=== PATIENT | female | born 1945 | race Caucasian/White ===

== ENCOUNTER → 2020-07-23 15:29 | Outpatient (CLI) | payer MEDICARE, OTHER, SELFPAY ==
[2020-07-23 16:34] LABS: COVID19 -Nasal RAPID Negative (Negative)
== END ==
PROVIDERS: PCP Internal Medicine; Visit Provider Specialist
DX: Z20.822 Contact with and (suspected) exposure to COVID-19 (principal)
CPT/HCPCS: 87635; C9803

== ENCOUNTER 2020-07-24 06:25 | Day surgery (SDC) | payer MEDICARE, OTHER, SELFPAY ==
[2020-07-24] VITALS (7 sets, daily range): BP systolic 109–145; BP diastolic 43–72; PULSE 58–69; RESP 11–20; TEMP 36.2–37.1; O2SAT 93–99; BMI 35.2
--- NOTE | 2020-07-24 | PATH_ITS ---
[facility] Accession Number: [id number] . 01 Material submitted: . anus - ANAL FISSURE AND SENTINAL PILE . 01 Clinical history: . A: RULE OUT VIRAL/NEOPLASTIC PROCESS . 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 MRV 07/29/2020 1250 Local . 02 Comment: As part of routine quality control inspector, Dr. Chatterjee also reviewed this case and agrees with the diagnosis. Dr. Morris gave preliminary results to Margi in Dr. Mills's office on 07/29/2020. . 02 Electronically signed: . Anita Morris MD, Pathologist NPI- [id number] . 01 Gross description: . The specimen is received in formalin, labeled anal fissure and sentinel pile, and consists of two nuñez-pink fragments of soft tissue measuring 1.2 x 0.8 x 0.7 cm in aggregate. The margins are inked blue. The larger fragment is bisected. The specimen is entirely submitted in cassette A1. ([id number]) /R 07/25/2020 1502 Local . 02 Pathologist provided ICD-10: C21.0 . 02 CPT . 920988 Performed at: 01 [facility] [address] [place] [address], [place], [place] [id number] MD Jean Paul Jo MD Phone: [phone] Performed at: 02 [facility] [address] [place], [place] [id number] Morris MD Phone: [phone]
[2020-07-24] MEDS: LACTATED RINGERS 1,000 ML 200 ML IV (07:21)
--- NOTE | 2020-07-24 07:27 | PM.PREOP ---
Pre-operative Note COVID-19 COVID-19 status: Negative Result date/Date tested (Pos, Neg/Pending): 07/23/20 Interval Note History & Physical reviewed/Exam performed by Physician: Yes Changes to H&P: No ASA Class (for procedural sedation): III
[2020-07-24] MEDS: FLEETS ENEMA 1 EACH PR (07:36)
--- NOTE | 2020-07-24 07:58 | SUR.PREOP ---
Pt unsure if she takes metoprolol. Dr. Mills notified pre-procedure.
--- NOTE | 2020-07-24 08:05 | SUR.OPER ---
patient lateral left side down on stretcher
[2020-07-24] MEDS: LIDOCAINE JELLY 2% 5 ML 1 APPLIC TOP (08:21)
--- NOTE | 2020-07-24 08:21 | PM.OP.ENDO ---
Operative Date/Time/Diagnoses Date of procedure: 07/24/20 Time of procedure: 08:21 Pre-op diagnosis: Atypical anal fissure/ sentinel pile. Post-op diagnosis: same Procedure & Clinicians Study performed: Anoscopy. Excision of sentinel pile on biopsy of fissure. Same procedure as scheduled: Yes Indications: Very painful fissure and an atypical location with a large sentinel pile. Patient brought in to rule out neoplastic versus viral cause. Surgeon: Hugh Mills Procedure Notes SCOAP/Timeout: Performed Procedure in detail: Patient was placed in left lateral decubitus position and underwent IV sedation direct by the surgeon. She has an exquisitely tender anus and was felt that short of sedation I would not be able to do this procedure. Topical anesthetic was applied to the anal verge. Then Betadine was applied and local anesthetic infiltrated external to the large sentinel pile. An anoscope was inserted and I examined the fissure. It was principally right near the anal verge and a rather short fissure. I took a biopsy of the wall. And I decided to remove the sentinel pile with part of the wall attached to get a good pathologic evaluation. The sentinel pile was elevated and a 4-0 chromic suture was placed around the base of this pile. The pile was excised. The bleeding have not been controlled by the chromic suture I placed additional chromic sutures across the defect created. Lidocaine was sprayed on gauze and it was placed at the anal verge. Additional gauze was applied and the patient was taken to the recovery area in good condition. Scope withdrawal time: Not applicable Sedation minutes: 20 Findings: other findings (Anal fissure with sentinel pile located in the right lateral/ anterior lateral position.) Specimen(s): other (Fissure biopsy and sentinel pile) Complications: none Post-procedure Follow up: weeks (2) Disposition: PACU
[2020-07-24] MEDS: LIDOCAINE 1% W/EPI 20 ML INJ (08:22)
[2020-07-24] MEDS: fentaNYL 250 MCG/5 ML INJ IV (08:23)
[2020-07-24] MEDS: MIDAZOLAM 5 MG/5 ML VIAL IV (08:25)
== END 2020-07-24 09:15 | disposition home or self-care (01) ==
PROVIDERS: PCP Internal Medicine; Referring Provider Specialist; Visit Provider Specialist
PROC: (CPT 45990; principal; 2020-07-24 07:45)
DX: C21.0 Malignant neoplasm of anus, unspecified (principal); K64.8 Other hemorrhoids; E78.00 Pure hypercholesterolemia, unspecified; I10 Essential (primary) hypertension
CPT/HCPCS: 46255; 46606; J2250; J3010

== ENCOUNTER 2024-01-29 12:38 | Inpatient (IN) | payer MEDICARE, OTHER, SELFPAY ==
[2024-01-22 08:43] VITALS: BMI 36.9
[2024-01-29] VITALS (11 sets, daily range): BP systolic 143–173; BP diastolic 51–88; PULSE 69–80; RESP 9–18; TEMP 35.9–37; O2SAT 92–99; BMI 36.2
[2024-01-29] MEDS: LACTATED RINGERS 1,000 ML 42 ML IV (14:00)
--- NOTE | 2024-01-29 14:56 | PM.PREOP ---
Pre-operative Note Interval Note History & Physical reviewed/Exam performed by Physician: Yes Changes to H&P: No
--- NOTE | 2024-01-29 15:29 | SUR.OPER ---
Prone on spine table, head in foam head support, padded chest and pelvic supports, gel pad at knees, lower legs supported by pillows; nipples, genitalia and toes free of pressure, arms secured on foam padded arm boards at <90 degrees abduction. Tape over blanket at thigh secured to table.
[2024-01-29] MEDS: CEFAZOLIN 2 GM/100 ML PREMIX 100 ML IV ×2 (15:40→20:02)
--- NOTE | 2024-01-29 15:42 | P.OP_ITS ---
Operative Date/Time/Diagnoses Date of procedure: 01/29/24 Time of procedure: 15:42 Pre-op diagnosis: 1. L5-S1 foraminal stenosis with radiculopathy 2. L5-S1 spondylosis Post-op diagnosis: same Procedure & Clinicians Procedure: 1. L5-S1 Postero-lateral and posterior interbody fusion 2. L5-S1 interbody cage placement. 3. L5-S1 decompressive laminectomy with bilateral facetecomies 4. L5-S1 Posterior non-segmental instrumentation 5. [place] of bone marrow from iliac crest 6. Utilization of microsurgical technique and operating microscope 7. Utilization of robotic assisted navigation Same procedure as scheduled: Yes Indications: Patient has been having chronic back pain and worsening lumbar radiculopathy. Patient was found to have severe L5-S1 degenerative disc disease with foraminal stenosis correlating with her symptoms. Patient failed multiple conservative management with worsening pain weakness and numbness in her lower extremity. Patient has been having difficulty performing activity of daily living. After discussing risks benefits of treatment options, patient elected proceed with surgery. Surgeon: Yolanda Simmons Associate Loan Officer: Johanne Pro Click Yes if Unassisted: No Anesthesia Type: General Operative Notes Closure Type: primary Specimen(s): none sent Prosthetic devices, grafts, tissues, transplants, or devices: GLobus CREO MIS screws, Rise cage Estimated Blood Loss (mL): 50 Blood products transfused: none Procedure in detail: Patient was seen in the preoperative area. Risks and benefits of the surgery was discussed with the patient. Informed consent was obtained from the patient and placed in the chart. Surgical site was marked. Patient was taken to the operative room. General anesthesia was administered. Prophylactic antibiotic was given to the patient less than 30 min before the incision was made. Patient was placed into a prone position on the Rory table. Patient's back was then prepped and draped in the sterile fashion. Time-out was performed at this time. After patient was prepped and draped, patient's PSIS was palpated and marked bilaterally. Small 1 cm incision was made over the PSIS for placement of the reference probes. Two trocar was placed into the PSIS 1 on each side. The refe rence probe was attached to the trocar of the reference apparatus. At this time the C-arm imaging was used to confirm AP and lateral of L5-S1 vertebrae and merged the C-arm imaging using the Near Infinity robotic navigation system with the CT of the lumbar spine. After successful merging was completed and confirmed, skin marker was used to leon out the skin incision using the Near Infinity robotic arm. Bilateral incision was made at this time. Pre templated trajectory was used and guided using the Near Infinity robotic navigation system for bilateral L5-S1 pedicle screw placement. This was done by using the robotic arm to guide the high-speed bur to make a cortical entry point. Next a drill was placed also using the robotic arm and guided using the navigation system drilling partially through bilateral L5, S1 pedicles. Next L5-S1 pedicle screws it was pre templated and measured was placed onto the power truck driver instructor and inserted into the pedicles bilaterally. After all 4 screws were placed C-arm imaging was taken of both AP and lateral to confirm the placement. Excellent placement of the screws were confirmed and a matched precisely with the pre planned screw placement using the navigation system. MARs retractor was inserted using Woldmeivation guidence. Globus MARS retractors was placed inside the incision and docked onto the L5 lamina. Using microsurgical technique and operating microscope, a L5 laminectomy and L5-S1 facetectomy was performed using a Kerrison rongeur. Patient was found have severe lateral recess and neural foramen stenosis which was fully decompressed after the laminectomy facetectomy. The laminectomy and facetectomy was performed in order to decompress patient's cauda equina as well as the nerve roots exiting at the L5-S1 level. More than 75% of the facets were removed during the process of decompression rendering L5-S1 level grossly unstable and required a fusion procedure at the same time. The disc space at L5-S1 was identified, and a total diskectomy was performed at L5-S1 level. The endplates were decorticated using a rasp and shaver. The total diskectomy and decortication was performed at L5-S1 level in order to to accomplish a L5-S1 fusion. The local bone from the laminectomy and facetectomy was saved for local bone grafting. After the total diskectomy and decortication was completed, Viacel bone graft material was combined with local bone that was harvested earlier. At this time, a separate skin is incision was made over the iliac crest. A Jamshidi needle was inserted into the iliac crest through a separate skin incis ion on the right. 5 cc of bone marrow aspiration was obtained through the separate skin incision using a Jamshidi needle from the iliac crest. The bone marrow aspiration was combined with local bone and the Viacel bone grafting material. The bone grafting material was placed into the L5-S1 interbody space along with a expandable cage. The cage was expanded to its maximum height using the torque limiting screwdriver. The disc preparation as well as the cage insertion were also performed under navigation guidance. After the cage was placed, AP and lateral C-arm imaging was taken to confirm placement of the cage and excellent position was confirmed. Globus MARS retractor was inserted and docked onto the L5-S1 posterolateral gutter on the right side. Using the power drill, posterior-lateral decortication was performed at L5-S1 level until bleeding cortical bone was identified. The remaining bone grafting material was placed into the L5-S1 posterior lateral gutter he order to accomplish posterolateral fusion at the L5- S1 level. At this time the tulips were attached to the L5-S1 pedicle screw shanks. After measuring the length of the rods, they were inserted into the tulips of the pedicle screws and locked in place using locking caps and torque limiting screwdriver bilaterally. Total 4 caps and 2 titanium rods was used in order to complete the posterior instrumentation construct. After all the hardware was placed, and confirmed with AP and lateral C-arm imaging, the wound was then irrigated with sterile normal saline and packed with Ray-Oskar gauze for 3 min to accomplish hemostasis. After the gauze was removed the deep fascia was closed with #1 Vicryl suture. The subcutaneous layer was closed with 2-0 Vicryl. The skin was closed with skin mary. Patient tolerated the procedure well. There were no complications. The Operation could not have been safely performed without compromising the technical result or length of the procedure, without the assistance of a skilled neurology physician assistant. The neurology physician assistant was medically necessary for proper positioning, retraction and manipulation of instruments, proper exposure, surgical preparation, and manipulation of tissue. Neuro monitoring system was used to monitor patient's neurologic status throughout entire procedure. There was no disturbance of the neural monitoring signals throughout the case. Complications: none Post-operative Condition: stable Disposition: PACU Plan for aftercare: Admit to inpatient hospital
[2024-01-29] MEDS: BUPIVACAINE 0.25% (PF) 30 ML, EPINEPHrine 0.15 MG INJ (17:19)
[2024-01-29] MEDS: BUPIVACAINE LIPOSOME 266 MG/20 ML VIAL INJ (17:20)
--- NOTE | 2024-01-29 17:26 | DI.RAD.S_ITS ---
PROCEDURE: XR LUMBAR SPINE 2-3V INDICATIONS: L5-S1 TLIF TECHNIQUE: Intraoperative images of the lumbar spine COMPARISON: None. FINDINGS: Intraoperative images demonstrate a L5-S1 TLIF in progress. Please see the operative report for further details. IMPRESSION: Intraoperative images of a L5-S1 TLIF. Dictated by: Sourav Read M.D. on 01/29/2024 at 18:02 Approved by: Sourav Read M.D. on 01/29/2024 at 18:02
[2024-01-29] MEDS: ACETAMINOPHEN IV 1,000 MG/100 ML VIAL 400 MG IV (17:57)
[2024-01-29] MEDS: hydrOXYzine 50 MG/ML INJ 25 MG IM (17:58)
[2024-01-29] MEDS: OXYCODONE IR 5 MG TABLET PO ×3 (18:01→23:20)
[2024-01-29] MEDS: fentaNYL 100 MCG/2 ML INJ IV ×4 (18:03→18:22)
[2024-01-29] MEDS: LACTATED RINGERS 1,000 ML 125 ML IV (20:01)
[2024-01-29] MEDS: DOCUSATE 100 MG CAPSULE PO (20:02)
[2024-01-29] MEDS: buPROPion XL 150 MG TAB PO (20:02)
[2024-01-29] MEDS: GABAPENTIN 300 MG CAPSULE PO (20:02)
[2024-01-29] MEDS: SENNOSIDES 8.6 MG TABLET 17.2 MG PO (20:02)
[2024-01-30] MEDS: HYDROMORPHONE 0.5 MG INJ IV (00:22)
[2024-01-30] MEDS: CEFAZOLIN 2 GM/100 ML PREMIX 100 ML IV (02:54)
[2024-01-30 04:00] VITALS: BP 139/67; PULSE 64; RESP 17; TEMP 36.6; O2SAT 98
[2024-01-30] MEDS: LACTATED RINGERS 1,000 ML 125 ML IV (05:43)
[2024-01-30] MEDS: OXYCODONE IR 10 MG TABLET PO ×3 (05:57→13:24)
--- NOTE | 2024-01-30 07:46 | P.PN_ITS ---
Subjective Subjective Date Patient Seen: 01/30/24 Time Patient Seen: 07:47 Interval history: Back pain is moderate. Denies fever or chills. No nausea or vomiting. Exam Vital Signs (past 8 hours): - 01/30/24 04:00 Temperature 97.8 F Pulse Rate 64 Respiratory Rate 17 Blood Pressure 139/67 Pulse Oximetry 98 Oxygen Flow Rate 1 Oxygen Delivery Method Room Air Oxygen Flow Rate 1 Narrative Exam Narrative: 78-year-old female resting comfortably in bed in no apparent distress. Neurovascular status is intact bilateral lower extremities. 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) S/P medial meniscus repair of right knee S/P medial meniscus repair of left knee Hx of shoulder surgery Hx of hand surgery Hx of foot surgery Hx of appendectomy Hx of tonsillectomy Family History Father Hypertension Heart disease Brother Hypertension Heart disease Mother Cancer Social History marital status: household members: spouse occupational status: previously employed Smoking Status: Former smoker alcohol intake: current substance use type: does not use Assessment & Plan Post-op Postoperative Procedures: Procedures Operation Date: 01/29/24 14:45 Actual Procedure Side Surgeon p L5-S1 TLIF-Robot Yolanda Simmons MD Postoperative day: 1 Postoperative status: doing well Postoperative plan: routine post-op care Postoperative plan narrative: Disposition, likely home today or tomorrow Quality VTE Deep Vein Thrombosis/Pulmonary Embolism Present on Admission: No
[2024-01-30] MEDS: MELOXICAM 7.5 MG TABLET PO (08:45)
[2024-01-30] MEDS: OXYBUTYNIN 5 MG TABLET PO (08:45)
[2024-01-30] MEDS: GABAPENTIN 300 MG CAPSULE PO (08:45)
[2024-01-30] MEDS: ATORVASTATIN 20 MG TABLET 80 MG PO (08:45)
[2024-01-30] MEDS: buPROPion XL 150 MG TAB PO (08:45)
[2024-01-30] MEDS: DOCUSATE 100 MG CAPSULE PO (08:45)
[2024-01-30] MEDS: AMLODIPINE 5 MG TABLET PO (08:46)
[2024-01-30 09:19] VITALS: BP 154/70; PULSE 70; RESP 16; TEMP 36.3; O2SAT 99
[2024-01-30] MEDS: LEVOTHYROXINE 50 MCG TABLET PO (09:51)
--- NOTE | 2024-01-30 10:20 | PT.IIE ---
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) Hx of appendectomy Hx of foot surgery Hx of hand surgery Hx of shoulder surgery Hx of tonsillectomy S/P medial meniscus repair of left knee S/P medial meniscus repair of right knee Medical History (Last Reviewed 01/30/24 @ 07:47 by Kar Michael PA-C) Arthritis Constipation Depression High cholesterol History of pneumonia HTN (hypertension) Hx of intestinal obstruction Melanoma Physical Therapy Inpatient Evaluation/Re-Eval M1 PT/OT-IP Prior Functional Status Start: 01/30/24 13:47 Freq: NEEDED Status: Discharge Protocol: Document 01/30/24 10:20 AB (Rec: 01/30/24 14:00 AB [id number]) Medical Review Prior Functional Status Medical History Reviewed Yes Communication able to make needs known Mobility and Gait pt stated that she was modified independent with all mobilities and ambulation without AD Activities of Daily Living and IADL's per OT note: Pt has pain for ADL and IADL. Social History Household Members spouse Living Arrangements Apartment/Condo Number of Floors (Floors) One Floor Number of Stairs To Enter/Railing? no steps to enter from the front of the house Home Environment Standard Height Toilet,Tub/ Shower Home Equipment Front Wheel Walker,Raised Toilet Seat w/Armrests,Shower Seat without Backrest,Hand Held Shower,Grab Bars Near Toilet,Grab Bars In Shower Additional Social History Comment pt plans to sleep on her recliner M2 PT-IP Current Condition Start: 01/30/24 13:47 Freq: NEEDED Status: Discharge Protocol: Document 01/30/24 10:20 AB (Rec: 01/30/24 14:00 AB [id number]) Physical Therapy Current Condition Current Condition Evaluation Date 01/30/24 Treatment Diagnosis s/p L5S1 TLIF; diffulty in walking Onset Date 11/11/24 M3 PT-IP Subjective Start: 01/30/24 13:47 Freq: NEEDED Status: Discharge Protocol: Document 01/30/24 10:20 AB (Rec: 01/30/24 14:00 AB [id number]) Subjective Physical Therapy Visit Type Type Initial Evaluation Visit Start Time 10:20 Visit Stop Time 11:40 Number of GREEN [employer]OMOTIONS SPECIALIST Visits 0 Physical Therapy Visit Comments Patient Comments agreeable to do PT Therapy Pain Assessment Pain When Pain Assessed At Rest Pain Present Pain Present Pain Reported Location dar k Intensity 7 Scale Used Numeric (0 - 10) Pain Behaviors Guarding Pain Management Techniques Apply Cold,Modification of Treatment,Re-positioning, Timing of Activity with Medications M4 PT-IP Mobility and Gait Start: 01/30/24 13:47 Freq: NEEDED Status: Discharge Protocol: Document 01/30/24 10:20 AB (Rec: 01/30/24 14:00 [id number]) PT-Bed Mobility Assessment Rolling Type of Rolling Log Rolling Level of Assist Maximal Assistance Supine to Sit Supine to Sit Moderate Assistance,1 Person Assistance Sit to Supine Sit to Supine Moderate Assistance,1 Person Assistance PT-Transfer Assessment Sit to and From Stand Sit to and from Stand Contact Guard Assistance, Minimal Assistance,1 Person Assistance,Use of Upper Extremities Equipment Transfer Assistive Device Gait Belt,Front Wheeled Walker Orthotic/Prosthetic Devices or Brace: No Transfers Transfer Destination Bed,Chair Transfer Technique ambulated Transfer Ability Level of Assist Contact Guard Assistance, Minimal Assistance,1 Person Assistance,Use of Upper Extremities Comments Mobility Comments pt supine in bed and spouse in room. pt agreed to do PT. obtained PLOF and home set up. educated pt regarding back precautions and log roll bed mobility. post-op folder provided and reviewed contents . pt completed log roll supine to sit mod to max A and max cues. able to sit on EOC initial min A. repositioned pt and able to sit SBA. completed sit to stand min A and cues. pt ambulated in room using FWW min A ~ 30 ft. pt sat on the chair. caregiver training conducted. educated spouse on how to use safety belt and how to assist pt. spouse was able to put safety belt on after 2 tries. assisted pt with sit to stand from the chair CGA. pt ambulated from chair to bed using fWW CGA to min A and cues. educated on cueing pt if needed. pt sat on EOB. completed log roll sit<>supine and instructed spouse on how to assist pt. spouse stated that pt can sleep on her recliner for now. pt completed sit to stand from EOB with spouse assisting and ambulated back to chair using FWW CGA min A. positioned pt on the chair. ice pack provided. call light and table placed within reach. Gait Assessment Gait Gait Assistance Required: Contact Guard Assist,Minimum Assistance Distance (Feet) 30 Able to Maintain Weight Bearing Status Yes During Gait Assistive Devices Assistive Device Gait Belt,Front Wheeled Walker Orthotic/Prosthetic Devices or Brace: No Gait Deviations General Gait Pattern Antalgic,Decreased Stride Length,Decreased Feet Clearance Factors Limiting Gait Function Factors Limiting Gait Function Decreased Activity Tolerance, Decreased Strength,Difficulty Following Directions,Limited Range of Motion,Pain,Poor Balance,Poor Safety Awareness PT-Balance Assessment Sitting Balance and Reactions Static Sitting Balance Ability Good Dynamic Sitting Balance Ability Fair Standing Balance and Reactions Static Standing Balance Ability Fair Dynamic Standing Balance Ability Fair Device Used FWW M5 PT-IP Objective Assessments Start: 01/30/24 13:47 Freq: NEEDED Status: Discharge Protocol: Document 01/30/24 10:20 AB (Rec: 01/30/24 14:00 [id number]) Orientation Orientation/Cognition Level of Alertness Alert Orientation Name,Place,Situation Language Function Ability Hard of Hearing Safety Awareness Decreased Safety Awareness Memory Description Short Term Impaired Gross Range of Motion Lower Extremity ROM Assessment Within Functional Limits Strength Lower Extremity Strength Assessment Bilaterally Impaired Hip 3-/5 Knee 4-/5 Coordination Assessment Gross Coordination Gross Coordination WNL Sensation Assessment Sensation Gross Sensation WNL Muscle Tone Muscle Tone WNL Yes M6 PT-IP Treatment Start: 01/30/24 13:47 Freq: NEEDED Status: Discharge Protocol: Document 01/30/24 10:20 AB (Rec: 01/30/24 14:00 AB [id number]) Physical Therapy Treatment Education Education Provided Precautions,Weight Bearing Status,Post-Op Packet,Safety M7 PT-IP Assessment and Plan Start: 01/30/24 13:47 Freq: NEEDED Status: Discharge Protocol: Document 01/30/24 10:20 AB (Rec: 01/30/24 14:00 [id number]) PT Summary Assessment and Plan Potential Rehabilitation Potential Fair Status of Condition at Evaluation Evolving Summary Impairments Pain,ROM,Strength,Balance, Coordination,Sensation,Tone, Cognition,Bed Mobility, Transfers,Gait,Activity Tolerance Assessment Summary pt is a 78 y/o F s/p L5S1 TLIF POD 1. pt requiring mod to max A for bed mobility, CGA to min A for transfers and ambulation using FWW. caregiver training conducted and spouse was able to assist pt safely. pt may go home when medically stable. Goals Bed Mobility Goal Independent Transfer Goal Independent,Front Wheeled Walker Gait Goal Independent,Front Wheel Walker Gait Distance 150 Days to Meet Goals 5 Frequency of Treatment Frequency Of Treatment Twice a Day Treatment Plan Physical Therapy Treatment Plan Bed Mobility Training,Transfer Training,Gait Training, Therapeutic Exercise,Balance Retraining,Post Op Education, Discharge Planning,Hot or Cold Pack,Neuromuscular Re-ed, Coordination Retraining,Manual Therapy Precautions Lumbar Precautions Log Roll,No Twisting,Limit Bending,Lifting Restriction of 10 lbs,Gait Belt above Incisional Area Recommendations To Nursing Amount of Assist Needed 1 Person Assist Discharge Recommendations PT Discharge Recommendations Home with 24/ Assist Available Transportation Needs at Discharge Private Vehicle
--- NOTE | 2024-01-30 11:39 | P.DS_ITS ---
History of Present Illness History of Present Illness Date Patient Seen: 01/30/24 Time Patient Seen: 11:39 Chief complaint: Back pain Narrative: See progress note Discharge Providers Provider Date of admission: 01/29/24 12:38 Discharge Date: 01/30/24 Primary care physician: Josefina Cochran DO Consults: 01/29/24 19:01 Consult to Occupational Therapy Evaluate & Treat Comment: Physician Instructions: Evaluate and treat Consult to Physical Therapy Evaluate & Treat Comment: Physician Instructions: Evaluate and Treat Discharge provider: Kar Michael PA-C Summary Hospital Course Discharge Diagnosis: 1. L5-S1 foraminal stenosis with radiculopathy 2. L5-S1 spondylosis Hospital Course: 1. L5-S1 Postero-lateral and posterior interbody fusion 2. L5-S1 interbody cage placement. 3. L5-S1 decompressive laminectomy with bilateral facetecomies 4. L5-S1 Posterior non-segmental instrumentation 5. [place] of bone marrow from iliac crest 6. Utilization of microsurgical technique and operating microscope 7. Utilization of robotic assisted navigation Same procedure as scheduled: Yes Indications: Patient has been having chronic back pain and worsening lumbar radiculopathy. Patient was found to have severe L5-S1 degenerative disc disease with foraminal stenosis correlating with her symptoms. Patient failed multiple conservative management with worsening pain weakness and numbness in her lower extremity. Patient has been having difficulty performing activity of daily living. After discussing risks benefits of treatment options, patient elected proceed with surgery. Surgeon: Yolanda Simmons Ep Technologist: Johanne Pro Click Yes if Unassisted: No Anesthesia Type: General Operative Notes Closure Type: primary Specimen(s): none sent Prosthetic devices, grafts, tissues, transplants, or devices: GLobus CREO MIS screws, Rise cage Estimated Blood Loss (mL): 50 Blood products transfused: none Patient admitted to the hospital for the above-mentioned procedure. Patient consented to the same. Patient underwent L5-S1 fusion January 29, 2024. Patient back in her room recovering well as in stable condition. Patient does have assistance at home. She will mobilize with physical therapy and be discharged if safe for home environment. Limit bending, twisting, lifting. Multimodal pain management. 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) S/P medial meniscus repair of right knee S/P medial meniscus repair of left knee Hx of shoulder surgery Hx of hand surgery Hx of foot surgery Hx of appendectomy Hx of tonsillectomy Family History Father Hypertension Heart disease Brother Hypertension Heart disease Mother Cancer Social History marital status: household members: spouse occupational status: previously employed Smoking Status: Former smoker alcohol intake: current substance use type: does not use Discharge Assessment & Plan Assessment and Plan Assessment: Patient progressing as expected Plan of Treatment: Limit bending, twisting, lifting Multimodal pain management Discharged home today in stable condition Discharge Plan Discharge Plan Patient Disposition: Home Discharge orders & Medications Prescriptions: New acetaminophen 325 mg Tablet 650 mg PO Q6H PRN (Reason: Fever/Mild Pain (1-3)) Qty: 30 0RF polyethylene glycol 3350 17 gram Powder In Packet 17 g PO DAILY PRN (Reason: Constipation) Qty: 14 0RF oxycodone 5 mg Tablet 5 mg PO Q3H PRN (Reason: Pain, Moderate (4-6)) Qty: 40 0RF Continued atorvastatin 80 mg tablet 80 mg PO DAILY amlodipine 5 mg tablet 5 mg PO DAILY bupropion HCl 150 mg tablet extended release 24 hr 150 mg PO QAM coenzyme Q10 100 mg capsule 100 mg PO DAILY omega-3 fatty acids 500 mg capsule 500 mg PO DAILY Metamucil 3.4 gram/5.4 gram Powder 2 tsp PO DAILY levothyroxine 50 mcg Tablet 50 mcg PO DAILY gabapentin 300 mg Capsule 300 mg PO TID zolpidem 5 mg Tablet 5 mg PO BEDTIME polyethylene glycol 3350 [Miralax] 17 gram/dose Powder 17 g PO DAILY PRN (Reason: constipation) oxybutynin chloride 5 mg Tablet 5 mg PO DAILY estradiol 0.01 % (0.1 mg/gram) cream 0.01 appful vaginal 3XW melatonin 10 mg Tablet 10 mg PO BEDTIME PRN (Reason: sleep ) Discontinued meloxicam 7.5 mg tablet 7.5 mg PO DAILY ibuprofen [Motrin] 100 mg Tablet,Chewable 200 mg PO Q6H PRN (Reason: Pain, Moderate) Follow up/Referrals: Josefina Cochran DO [Primary Care Provider] - Yolanda Simmons MD [Physician] - 02/13/24 2:30 pm (Follow up w/ Andrés Alcala PA-C, at [facility] in [place].) Diet/Activity/Treatments Diet: Diet as Tolerated Activity: No deep bending or twisting at the waist. No lifting more than 10 pounds. Skin/Wound/Dressing Care Report to your healthcare provider any signs of infection, such as:: chills, fever, night sweats, unusual drainage and unusual redness Dressing: May shower. Keep dressing as dry as possible. If dressing becomes wet or dirty, may remove and replace with clean, dry gauze. No bathing or otherwise soaking incisions. Do not apply any creams, lotions, or ointments to incisions. Visit Report/Discharge Packet Instructions: DI for Prescription Opioid Use, DI for Transforaminal Lumbar Interbody Fusion Stand Alone Forms: Patient Portal/API, Stroke Signs & Symptoms, Surgery Discharge Discharge Data Primary Care Provider: Josefina Cochran Quality VTE Deep Vein Thrombosis/Pulmonary Embolism Present on Admission: No
--- NOTE | 2024-01-30 12:38 | OT.IP.EVAL ---
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 Activities of Daily Living and IADL's Pt has pain for ADL and IADL. Social History Household Members spouse Living Arrangements Apartment/Condo Number of Floors (Floors) One Floor Number of Stairs To Enter/Railing? No stairs. Home Environment Standard Height Toilet,Tub/ Shower Home Equipment Raised Toilet Seat w/Armrests, Hand Held Shower,Grab Bars In Shower Additional Social History Comment Pt has suction cup grab bar for the shower. Pt states to sleep in her recliner initially. M2 OT-IP Current Condition Start: 01/30/24 12:42 Freq: Status: Active Protocol: Document 01/30/24 12:42 [facility] (Rec: 01/30/24 13:00 [facility] [id number]) Occupational Therapy Current Condition Current Condition Evaluation Date 01/30/24 Treatment Diagnosis S/P L5-S1 TLIF Diagnosis Onset Date 01/29/24 Post Operative Precautions Lumbar Precautions Log Roll,No Twisting,Limit Bending,Lifting Restriction of 10 lbs,Gait Belt above Incisional Area M3 OT- IP Subjective and Pain Start: 01/30/24 12:42 Freq: Status: Active Protocol: Document 01/30/24 12:42 [facility] (Rec: 01/30/24 13:00 [facility] [id number]) OT- Subjective Occupational Therapy Visit Type Type Initial Evaluation Visit Start Time 12:00 Visit Stop Time 12:38 Occupational Therapy Visit Comments Patient Comments Pt agreed to get dressed and able to do caregiver training with pt and her . Patient/Caregiver Goals To go home. OT Pain Assessment Pain When Pain Assessed At Rest Pain Present Pain Present Pain Reported Location dar k Intensity 5 Scale Used Numeric (0 - 10) M4 OT- IP ADL's Start: 01/30/24 12:42 Freq: Status: Active Protocol: Document 01/30/24 12:42 [facility] (Rec: 01/30/24 13:00 [facility] [id number]) OT [id number] General Evaluation Self-Feeding Ability Independent OT ADL-Oral Care Comments Oral Care Comments Educated pt best to hinge at her hips or spit into a cup to best follow her back precautions. OT ADL-Dressing General Eval Upper Body Dressing Ability Independent Lower Body Dressing Ability Moderate Assistance Comments OT Dressing Comments Able to show and practice use of LB dressing with pt. OT ADL-Toileting Comments OT Toileting Comments Suggested to use pads/ pull up brief. Pt able to appropriately stand and reach back to wipe. Wet ones will be helpful for hygiene needs. OT ADL-Bathing Comments OT Bathing Comments Pt will benefit from getting a tub bench. M5 OT- IP IADL's Start: 01/30/24 12:42 Freq: Status: Active Protocol: Document 01/30/24 12:42 [facility] (Rec: 01/30/24 13:00 [facility] [id number]) OT-Instrumental Activities of Daily Living Home Safety Awareness Awareness of Need for Assistance at Home Good Awareness Ability to Problem Solve Emergency Able to Problem Solve Situations Home Safety Comments Pt has a supportive to assist her. Meal Preparation Meal Preparation Caregiver Provides Assist Analysis Manager Analysis Manager Caregiver Provides Assist M6 OT- IP Functional Cognition Start: 01/30/24 12:42 Freq: Status: Active Protocol: Document 01/30/24 12:42 [facility] (Rec: 01/30/24 13:00 [facility] [id number]) Cognitive Factors Limiting Selfcare Function Cognitive Ability Level of Alertness Alert Patient Orientation Name,Age,Birthday,Month,Date, Year,Day of Week,Place, Situation Attention Span Ability Capable of Focused Attention, Capable of Sustained Attention Ability to Follow Commands Able to Follow One Step Commands Cognitive Comments Cognitive Assessment Comments Pt able to follow her back precautions for ADL and mobility needs. OT- Vision and Hearing OT- Hearing Assessment OT- Hearing Assessment WFL OT- Vision Assessment Visual Acuity Glasses All The Time Visual Attentiveness WFL Occular Pursuits WFL M7 OT- IP Mobility and Balance Start: 01/30/24 12:42 Freq: Status: Active Protocol: Document 01/30/24 12:42 [facility] (Rec: 01/30/24 13:00 [facility] [id number]) OT-Transfer Assessment Sit to and From Stand Sit to and from Stand Minimal Assistance Transfers Transfer Ability Minimal Assistance Technique Transfer Destination Chair Transfer Technique Stand Step Pivot Devices Transfer Assistive Devices Gait Belt,Front Wheeled Walker Comments Mobility Comments Pt's able to rosibel/doff the gait belt and appropriately assist pt to stand up with FWW for dressing needs. OT- Balance Assessment Sitting Balance and Reactions Static Sitting Balance Ability Normal Dynamic Sitting Balance Ability Good Standing Balance and Reactions Static Standing Balance Ability Good Dynamic Standing Balance Ability Fair M8 OT- IP Objective Assessments Start: 01/30/24 12:42 Freq: Status: Active Protocol: Document 01/30/24 12:42 [facility] (Rec: 01/30/24 13:00 [facility] [id number]) OT Gross Range of Motion Upper Extremity Range of Motion Assessment Within Functional Limits OT Strength Upper Extremity Strength Assessment Within Functional Limits OT Sensation Assessment Edema Edema Absent M9 OT- IP Assessment and Plan Start: 01/30/24 12:42 Freq: Status: Active Protocol: Document 01/30/24 12:42 [facility] (Rec: 01/30/24 13:00 [facility] [id number]) OT Summary Assessment and Plan Potential Rehabilitation Potential Excellent Analytic Complexity at Evaluation Low Summary OT Impairments Pain,Strength,Balance, Functional Mobility,Dressing, Toileting,Bathing,Toilet Transfers,Shower Transfers Progress Towards Goals Progressing Toward Goals Assessment Summary Pt low complexity and main barriers are pain, will need assist for ADL needs and helpful to get LB dressing equipment, bedside commode, and tub bench. Pt has a supportive to assist with all her needs. Pt states to sleep in the recliner initially. Goals Dressing Goal Minimal Assistance Toileting Goal Standby Assistance Bathing Goal Minimal Assistance Toilet Transfer Goal Independent Shower Transfer Goal Contact Guard Assistance Days to Meet Goals 5 Frequency of Treatment Other frequency 5x/week Treatment Plan OT Treatment Plan ADL Training,Functional Mobility,Patient/Family Education,Discharge Planning Discharge Recommendations OT Discharge Recommendations Home with 10/10 Assist Available Home Equipment Needs bedside commode, LB dressing equipment, tub bench Transportation Needs at Discharge Private Vehicle
--- NOTE | 2024-01-30 13:43 | PC.NURSE ---
Patient met with PT and OT today as ordered, and ready for discharge to home with her today. Dressing to back is CDI. Patient voided in toilet this morning. Tolerating water and lunch. Discharge handouts and instructions reviewed with patient and her , they state understanding and have no further questions or concerns at this time. Patient states her post op follow ups are already scheduled. IV dc'd intact. Patient escorted out via wheelchair with all belongings to home with her .
--- NOTE | 2024-01-30 14:05 | CM.DANOTE ---
B DCP Assessment note Pt is a 78yoF POD1 from [facility] with Dr. Simmons PCP Josefina Cochran Payer Medicare and [email or web address] DOPER OPERATOR reviewed EMR. Per chart review, pt lives with spouse in [place]. walker/elevated toilet at home. indep at baseline. PT/OT rec home with assistance. Ortho PA cleared Pt to dc home today. Pt left prior to being seen by this DOPER OPERATOR P: home with spouse support today and OP PT and OP f/u recommended. CM team will continue to follow as needed ROBERT Cortés Discharge Planning/Care Management CM Discharge Assessment Start: 01/30/24 14:03 Freq: Status: Discharge Protocol: Document 01/30/24 14:03 SL (Rec: 01/30/24 14:04 SL [id number]) Discharge Planning Assessment Assigned Web Operations Specialist ROBERT De Leon DPOA/Assigned Designee Name lita Murray Contact Information [phone] Advance Directives? No History Provided By Medical Record Prior Living Arrangements Apartment/Condo Household Members spouse Independent with ADL's Yes Is patient alert and oriented? Yes DME Already Rented / Owned Elevated Toilet Seat,FWW / Walker Barriers to Discharge No Transportation Arrangement spouse in [place] Referrals Initiated None needed Whiteboard Updated in Patient Room with No name and ext. # of Web Operations Specialist Review Status In Process Please Provide Date Initial DC 01/30/24 Assessment Was Performed Next Review Type Continued Stay Review Pre-Anesthesia Assessment Start: 01/22/24 08:43 Freq: Status: Discharge Protocol: Document 01/22/24 08:43 LB (Rec: 01/22/24 09:25 LB [id number]) Pre-Anesthesia Assessment PAC Comment 01/22/24 Phone assessment. Patient Information Reviewed Via Phone Assessment Assessment Completed With Patient Diagnostic Results BMP/CMP,CBC,EKG Comment 01/15/24 outside results. Primary Care Provider Josefina Cochran Seen Specialist in Last 12 Months Yes Specialist Seen Orthopedist Primary Language U[place]ayan Preferred Language Uruguayan Teletypewriter Operator Required No Height 157.48 cm Weight 91.626 kg Body Mass Index (BMI) 36.9 Hearing Ability Normal Visual Assist Glasses Dentition Type Teeth, Natural Present Barriers to Learning None Other Aids No Hx Anesthesia Reactions No Hx Family Anesthesia Reaction No Hx Malignant Hyperthermia No Hx Blood Transfusions No Anesthesia Review Requested No Psychiatric Technician Assistant No alcohol intake current alcohol intake frequency 0-2 drinks per day Smoking Status Former smoker how long ago did patient quit smoking quit 1989. Substance Use Type does not use Pain Present Pain Reported Comment Lower lumbar. Musculoskeletal Symptoms Back Pain,Difficulty Walking History of Falling (Recent or History of No ) Patient is completely paralyzed or No completely immobile Mental Status Oriented to own ability Comment Will bring walker. Is patient on oxygen? No Does patient have JHA/SOB No Hx Sleep Apnea No CPAP/BIPAP use not prescribed Currently Taking a Beta Gurvinder No Can You Climb a Flight of Stairs Without Yes SOB Hx Chest Pain No Hx SOB No Hx Syncope or Dizziness No Anti-Coagulant Therapy No Cardiac Testing No Hx Pacemaker/ICD No Cardiac Clearance Received Not Applicable Dysphagia No Gastrointestinal Symptoms Constipation Bladder Pattern Frequency,Nocturia Urinary Catheter Present No Hx Urinary Self Catheterization No Diabetes No Patient No Lactating No Hx Drug Resistant Organism No Presence of External or Internal Medical Yes: right shouler, left knee. Devices Have you had any close contact with No someone diagnosed with COVID-19? Are you experiencing any of these No symptoms symptoms? Marital Status Lives With spouse Current Living Arrangements Apartment/Condo Number of Stairs To Enter/Railing? No stairs. Support System Spouse Does the Patient Have Assistance After Yes Surgery Patient Discharge Plan Description Return Home Additional comment Advised overnight LOS. Feels Safe in Current Environment Yes Do you have a plan to hurt yourself or No Plan others? Emergency Contact Name Trevor Duran - Emergency Contact Advance Directives? No PAC Instructions Assistance for 24 hours post- op,Durable medical equipment, Medications to take/avoid, Nasal antibiotic,No ETOH/ petroleum product on skin DOS, NPO,Post-op transportation,Pre -surgical wash,Sensory aids, Sturdy shoes/comfortable clothes,Do not bring valuables and remove jewelry
== END 2024-01-30 13:47 | disposition home or self-care (01) | DRG 402 ==
PROVIDERS: Admitting Provider Orthopaedic Surgery Orthopaedic Surgery of the Spine; PCP Student in an Organized Health Care Education/Training Program; Referring Provider Orthopaedic Surgery Orthopaedic Surgery of the Spine; Visit Provider Orthopaedic Surgery Orthopaedic Surgery of the Spine
PROC: 0SG30AJ Fusion of Lumbosacral Joint with Interbody Fusion Device, Posterior Approach, Anterior Column, Open Approach (ICD-10-PCS; principal; 2024-01-29 14:45)
DX: M48.07 Spinal stenosis, lumbosacral region (principal); M48.061 Spinal stenosis, lumbar region without neurogenic claudication; M51.16 Intervertebral disc disorders with radiculopathy, lumbar region; M47.26 Other spondylosis with radiculopathy, lumbar region; M47.27 Other spondylosis with radiculopathy, lumbosacral region; E78.5 Hyperlipidemia, unspecified; I10 Essential (primary) hypertension; F32.A Depression, unspecified; E07.9 Disorder of thyroid, unspecified; K59.00 Constipation, unspecified; Z87.891 Personal history of nicotine dependence
CPT/HCPCS: 72100; 76000; 97162; 97165; 97530; 97535; C1713; C9290; J0134; J0171; J0330; J0690; J1100; J1171; J2405; J2704; J3010; J3410